=== PATIENT | male | born 1930 | race Caucasian/White ===

== ENCOUNTER 2016-06-02 20:51 | Observation (INO) | payer MEDICARE, OTHER ==
--- NOTE | 2016-06-02 21:07 | Emergency Department Record ---
History of Present Illness - General Chief complaint: Weakness Stated complaint: WEAKNESS Time Seen by Provider: 06/02/16 21:06 Source: Patient Mode of Arrival: EMS Limitations: No limitations - History of Present Illness Initial comments: The patient is here due to being very weak for about 3 weeks and progressively getting worse now. Tonight he was walking to the bathroom and got so weak he fell with his and could not get up. He denies hitting his head or having any LOC. The patient also denies any CP, SOB, AP or vomiting and just states he feels weak all over. 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 MD Complaint: Generalized weakness Onset/Timin -: Hour(s) Location: Generalized Consistency: Constant Improves with: None Worsens with: None Associated Symptoms: Denies other symptoms - Angel Coma Scale Eye Response: (4) Open spontaneously Motor Response: (6) Obeys commands Verbal Response: (5) Oriented [place] Total: 15 - Related Data Home Medications Medication Instructions Recorded Confirmed Last Taken Gabapentin [Neurontin] 100 mg PO TID 07/04/15 06/02/16 08/11/15 Hydrocodone/Acetaminophen [[place] 1 tab PO Q6H PRN 06/02/16 06/02/16 Unknown 5mg/325mg] Loperamide HCl [Immodium] 2 mg PO DAILY 06/02/16 06/02/16 Unknown Steroid Cream 1 unit TOP ASDIR 06/02/16 06/02/16 Unknown Allergies Allergy/AdvReac Type Severity Reaction Status Date / Time No Known Drug Allergies Allergy Verified 08/12/15 16:26 Travel Screening - Travel/Exposure Within Last 30 Days Have you traveled within the last 30 days?: No - Travel/Exposure Within Last Year Have you traveled outside the [place] in the last year?: No - Additonal Travel Details Have you been exposed to anyone with a communicable illness?: No - Travel Symptoms Symptom Screening: None Review of Systems Constitutional: Reports: Malaise. Denies: Chills, Fever Eyes: Denies: Eye discharge ENT: Denies: Congestion Respiratory: Denies: Cough, Dyspnea Cardiovascular: Denies: Arrhythmia, Chest pain Past Medical History - SOCIAL HISTORY Smoking Status: Current every day smoker Alcohol Use: None Drug Use: None - RESPIRATORY Hx Respiratory Disorders: No Hx Asthma: No Hx Bronchitis: No Hx COPD: No Hx Dyspnea: No Hx Pneumonia: No Hx Pulmonary Embolism: No Hx Sleep Apnea: No Hx Tuberculosis: No - CARDIOVASCULAR Hx Cardio Disorders: No - NEURO Hx Neuro Disorders: No - GI Hx GI Disorders: No - Hx Genitourinary Disorders: Yes Hx Kidney Stones: Yes - ENDOCRINE Hx Endocrine Disorders: No - MUSCULOSKELETAL Hx Musculoskeletal Disorders: Yes Hx Arthritis: Yes Comment:: miat birthnimal fxning L arm, damaged - PSYCH Hx Psych Problems: No - HEMATOLOGY/ONCOLOGY Hx Hematology/Oncology Disorders: Yes Hx Anemia: Yes (myelodysplasia refractory anemia) Hx Cancer: Yes Hx Blood Transfusions: Yes Family Medical History Any Significant Family History?: No Physical Exam - General General Appearance: Alert, Oriented x3, Cooperative, No acute distress - Head Head exam: Atraumatic, Normocephalic, Normal inspection - Eye Eye exam: Normal appearance, PERRL - ENT Throat exam: Normal inspection. negative: Tonsillar erythema, Tonsillar exudate - Neck Neck exam: Normal inspection, Full ROM. negative: Lymphadenopathy, Meningismus , Tenderness - Respiratory Respiratory exam: Normal lung sounds bilaterally. negative: Respiratory distress - Cardiovascular Cardiovascular Exam: Regular rate, Normal rhythm, Normal heart sounds, Systolic murmur (3/6.) - GI/Abdominal GI/Abdominal exam: Soft, Normal bowel sounds. negative: Tenderness - Extremities Extremities exam: Normal inspection, Full ROM, Normal capillary refill. negative: Tenderness - Neurological Neurological exam: Abnormal gait, Alert, Oriented X3. negative: Motor sensory deficit, Normal gait - Psychiatric Psychiatric exam: Flat affect Course Vital Signs 06/02/16 20:54 Temperature 98.9 F Pulse Rate 74 Respiratory 20 Rate Blood Pressure 114/46 Pulse Ox 97 - Reevaluation(s) Reevaluation #1: The patient is resting comfortably. He still is quite weak and there are no new issues. I did explain the lab tests to the patient and family and did recommend hospital admission for monitoring and a blood transfusion. I also did discuss the issues with Dr. Montero who is closer on for Dr. Arevalo and she does agree with the plan. 06/02/16 22:59 Medical Decision Making - Data Complexity MDM Data: Labs Ordered and/or Reviewed, X-Ray Ordered and/or Reviewed (CXR: Neg for acute changes. CMG and COPD. 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
[2016-06-02] MEDS ORDERED: 0.9 % SODIUM CHLORIDE 1,000 ML BAG IV ONE (21:30)
[2016-06-02 21:42] LABS: HEMATOCRIT 20.6 % (42.0-52.0); MEAN CELL VOLUME 105.1 fl (81-97); MEAN CORPUSCULAR HGB CONC 31.6 g/dl (32-36); MEAN PLATELET VOLUME 10.8 fl (7.4-10.4); PLATELET COUNT 274 K/uL (130-400); RED BLOOD COUNT 1.96 M/uL (4.40-5.70); RED CELL DISTRIBUTION WIDTH 19.3 % (11.5-14.5); WHITE BLOOD COUNT W/O DIFF 10.3 K/uL (4.2-12.2)
[2016-06-02 21:43] LABS: MEAN CORPUSCULAR HEMOGLOBIN 33.1 pg (27-33)
[2016-06-02 21:53] LABS: ALB/GLOB RATIO 1.4 (1.1-1.8); ALBUMIN 3.7 gm/dL (3.5-5.0); ALKALINE PHOSPHATASE 74 U/L (38-126); ALT/SGPT 22 U/L (21-72); ANION GAP 13.7 (7-16); AST/SGOT 13 U/L (17-59); BILIRUBIN,TOTAL 0.59 mg/dL (0.2-1.3); BLOOD UREA NITROGEN 43 mg/dL (9-20); CARBON DIOXIDE 22.3 mmol/L (22-30); CREATININE 1.3 mg/dL (0.66-1.25); EST GLOMERULAR FILTRATION RATE 56 ml/min; GLUCOSE,RANDOM 111 mg/dL (70-110); HYPOCHROMIA 2+; PLATELET ESTIMATE NORMAL (NORMAL); TOTAL PROTEIN 6.4 gm/dL (6.3-8.2)
[2016-06-02 21:54] LABS: HEMOGLOBIN 6.5 gm/dl (14.0-18.0)
[2016-06-02 21:56] LABS: CREATINE PHOSPHOKINASE < 20 U/L (55-170)
[2016-06-02 22:05] LABS: CKMB 0.7 ug/L (0-6); TROPONIN I 0.013 ng/mL (0.00-0.034)
[2016-06-02 22:59] LABS: ABO GROUP A; ANTIBODY SCREEN NEGATIVE (NEGATIVE); RH TYPE POSITIVE
[2016-06-03] MEDS ORDERED: HYDROCODONE/APAP 5/325MG TABLET PO PRN (00:12)
[2016-06-03 00:22] LABS: IMMED. SPIN CROSSMATCH COMPATIBLE
[2016-06-03 00:23] LABS: IMMED. SPIN CROSSMATCH COMPATIBLE
[2016-06-03 03:31] LABS: CKMB 0.5 ug/L (0-6); TROPONIN I 0.022 ng/mL (0.00-0.034)
--- NOTE | 2016-06-03 07:33 | RADIOLOGY REPORT ---
EXAM: CHEST, TWO VIEWS HISTORY: WEAKNESS. TECHNIQUE: AP sitting and lateral views of the chest were obtained. Comparison: Two view chest 08/12/15. FINDINGS: Stable cardiomegaly. Torsion of the aorta. The lungs again appear hyperinflated suggesting COPD. No definite acute infiltrate is seen and no pleural effusion or pneumothorax evident. Diffuse osteopenia consistent with osteoporosis. IMPRESSION: 1. CARDIOMEGALY. 2. OSTEOPOROSIS. 3. TORSION OF THE AORTA. 4. THE LUNGS APPEAR HYPERINFLATED SUGGESTING COPD. JOB NUMBER: [id number] MTDD
--- NOTE | 2016-06-03 07:39 | CT SCAN REPORT ---
EXAM: EMERGENCY HEAD CT WITHOUT CONTRAST HISTORY: WEAKNESS AND FREQUENT FALLS, FELL AT HOME IN THE HALLWAY JUST PRIOR TO COMING TO THE HOSPITAL. TECHNIQUE: Axial CT scan of the head was performed without IV contrast. Comparison: Head CT dated 08/12/15. Encounter: Initial. FINDINGS: No definite acute intracranial hemorrhage is identified. No focal mass effect or midline shift apparent. 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 There is also likely a small peripheral infarct in the right cerebellar hemisphere as before. No definite acute infarct or intracranial mass lesion is seen. There is some new opacification inferiorly in the right maxillary antrum compared with the prior study. Persistent opacification of numerous right mastoid air cells although clearing of the right middle ear cavity since the prior CT. No depressed calvarial fracture is evident. IMPRESSION: 1. PROMINENT GENERALIZED ATROPHY WITH CHRONIC APPEARING DEEP WHITE MATTER CHANGES BEFORE. 2. 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 3. NO DEFINITE ACUTE INTRACRANIAL HEMORRHAGE OR FOCAL MASS EFFECT EVIDENT. 4. SOME NEW OPACIFICATION INFERIORLY IN THE RIGHT MAXILLARY ANTRUM. PERSISTENT OPACIFICATION IN SOME RIGHT MASTOID AIR CELLS, BUT CLEARING OF PREVIOUSLY SEEN OPACIFICATION IN THE RIGHT MIDDLE EAR CAVITY COMPARED WITH . JOB NUMBER: [id number] MTDD
[2016-06-03 09:44] LABS: BASO % 0.2 % (0-6); EOS % 5.9 % (0-6); GRAN % 79.2 % (47-80); HEMOGLOBIN 8.4 gm/dl (14.0-18.0); LYMPH % 5.6 % (16-45); MEAN CELL VOLUME 96.7 fl (81-97); MEAN CORPUSCULAR HEMOGLOBIN 31.2 pg (27-33); MEAN CORPUSCULAR HGB CONC 32.3 g/dl (32-36); MEAN PLATELET VOLUME 10.9 fl (7.4-10.4); MONO % 9.1 % (0-9); PLATELET COUNT 214 K/uL (130-400); RED BLOOD COUNT 2.69 M/uL (4.40-5.70); RED CELL DISTRIBUTION WIDTH 21.4 % (11.5-14.5)
[2016-06-03] MEDS ORDERED: GABAPENTIN 100 MG CAPSULE PO SCH (10:00)
[2016-06-03] MEDS ORDERED: LOPERAMIDE 2 MG CAPSULE PO SCH ×2 (10:00→22:00)
[2016-06-03 10:09] LABS: CKMB 0.6 ug/L (0-6); TROPONIN I 0.026 ng/mL (0.00-0.034)
--- NOTE | 2016-06-03 10:51 | History and Physical Report ---
CHIEF COMPLAINT: Weakness. HISTORY OF CHIEF COMPLAINT: This 85-year-old male presented to the Emergency Department with weakness. He almost fell down, his caught him and eased him to the floor. He was evaluated in the Emergency Department by Dr. Morris and admitted to the hospital for blood transfusions. He has a myelodysplastic syndrome and he gets blood transfusions about every month. His hemoglobins run usually when he gets the transfusions in the 6's and the highest it has gotten after transfusion is 8.9. He also is getting shots to try to build up his blood through Dr. Gates, his primary doctor and Dr. Arevalo, his hematology/ oncology doctor. The patient's admission status was changed to observation because normally he goes home after his blood transfusion and he would like to go home today. He denies any pain, any difficulty breathing, or abdominal pain. No bloody stools. The patient has a known myelodysplastic syndrome and he gets frequent blood transfusions. He also has renal insufficiency and arthritis. PAST MEDICAL HISTORY: Myelodysplastic syndrome requiring frequent transfusions , arthritis, renal insufficiency, history of kidney stones in the past and some nerve pain problems in his legs probably neuropathy. PAST SURGICAL HISTORY: Appendectomy, lithotripsy, left shoulder surgery, and left arm surgery. MEDICATIONS ON ADMISSION: Gabapentin 100 mg t.i.d., occasional [place] use, Imodium for diarrhea prn, and steroid cream prn. ALLERGIES: No known drug allergies. FAMILY/PSYCHOSOCIAL HISTORY: Unremarkable. He smokes occasional cigarettes. No alcohol or drug use. REVIEW OF SYSTEMS: HEENT: No upper respiratory infectious symptoms, cough, cold or congestion. Cardiovascular: No chest pain, palpitations, or arrhythmias. Respiratory: No cough, cold or congestion. Gastrointestinal: No nausea, vomiting, diarrhea, black stools, or bloody stools. Genitourinary: No dysuria, hematuria, frequency, or burning on urination. Musculoskeletal: He has weakness, but it is generalized weakness from his anemia. Neurologic: No CVA, paralysis, or paresthesias. Endocrine: No diabetes or thyroid disease. Integument: No rash, ulcers, change in moles or yellow skin. PHYSICAL EXAMINATION: Height is 5'6", weight is 145 pounds. Vital signs: Temperature is 98.8, pulse is 84, blood pressure is 124/58, respiratory rate is 16, pulse ox is 98% on room air. HEENT: Pupils are equal, round and reactive to light and accommodation. Extraocular muscles are intact. Throat is clear. Nose is clear. Tympanic membranes are trujillo. NECK: Supple. No jugular venous distention. No hepatojugular reflex. No carotid bruits. Thyroid is smooth. CARDIOVASCULAR: Regular rate and rhythm without murmurs, clicks, rubs or gallops. RESPIRATORY: Clear to auscultation and percussion. ABDOMEN: Soft, nontender. No hepatosplenomegaly. No masses. No tenderness. Bowel sounds are active. No bruits. EXTREMITIES: No pitting edema. No cyanosis. No clubbing. Full range of motion. Peripheral pulses are good. BREASTS: Normal male breasts. RECTAL: Deferred. GENITALIA: Normal male genitalia. NEUROLOGICAL: Cranial nerves II through XII intact. No gross defects. Sensation normal. Strength normal. Deep tendon reflexes are equal bilaterally. Babinski's negative. MENTAL STATUS: Alert and oriented times three. IMPRESSION: 1. MYELOPLASTIC ANEMIA. 2. MYELODYSPLASTIC SYNDROME. 3. RENAL INSUFFICIENCY. 4. ARTHRITIS. 5. NEUROPATHY. PLAN: Transfuse the two units of blood, we will check a one hour post transfusion hemoglobin and then decide on if he can be discharged. Fredy Newberry D.O. Date & Time JOB NUMBER: [id number] MTDD
--- NOTE | 2016-06-03 12:45 | Discharge Note ---
Discharge Note - Date Date of Discharge Note: 06/03/16 Additional Instructions: follow up with Dr. Gates in one week follow [facility] Dr. Arevalo as scheduled Forms: Patient Portal Access Activity at Discharge: Increase Activity as Tolerated
--- NOTE | 2016-06-04 10:43 | Discharge Summary ---
DATE OF DISCHARGE: 06/03/2016. STATUS: Observation patient. DISCHARGE DIAGNOSES: 1. Anemia. 2. Myeloplastic dysplasia syndrome. 3. Arthritis. 4. Mild renal insufficiency. ATTENDING PHYSICIAN: Fredy Newberry D.O. REASON FOR HOSPITALIZATION: Weakness. HISTORY OF THE PRESENT ILLNESS: This 85-year-old male fell. His caught him and eased him to the floor. He came into the emergency department for evaluation by Dr. Morris. He was admitted to the hospital for blood transfusions. He has had these done many times as an outpatient. He is feeling better after his blood was transfused. He had one and a half units, and when I saw him initially this morning he was feeling better. He was walking independently in the room with a nurse standing by him. The patient would like to go home. SIGNIFICANT FINDINGS: His hemoglobin was 6.5 in the emergency department. After two units of blood it was 8.4. THERAPY PROVIDED AND RESPONSE TO THERAPY: He had the blood transfusion. He is doing much better. He is stronger and is walking in the room. HOSPITAL COURSE: Improved. CONDITION AT DISCHARGE: Improved and will be discharged. DISCHARGE INSTRUCTIONS: Follow up with Dr. Gates in one week. Follow up with Dr. Arevalo as scheduled. Fredy Newberry D.O. Date Time JOB NUMBER: [id number] cc: Anupam Lemons D.O. [facility]ENTERJavier
== END 2016-06-03 14:22 | disposition home health service (06) ==
LOC: ER 20:51 → INTOOBSV 23:28 → MEDSURG 23:28
PROVIDERS: ADMIT Emergency Medicine; ATTEND Emergency Medicine
DX: D46.9 Myelodysplastic syndrome, unspecified (principal); N28.9 Disorder of kidney and ureter, unspecified; M19.90 Unspecified osteoarthritis, unspecified site; G62.9 Polyneuropathy, unspecified
CPT/HCPCS: 36430; 99285 ×2; 82550; 85025; 82553 ×2; 84484 ×2; 80053; 85027; 86900; 86901; 86850; 71020; 70450; 93005 ×2; 93010 ×2; G0378 ×2; P9016; 99220; J7030